=== PATIENT | male | born 1950 | race Caucasian/White ===

== ENCOUNTER 2018-08-14 13:37 | Emergency (ER) | payer MEDICARE, SELFPAY ==
[2018-08-14 13:41] VITALS: PULSE 61; RESP 20; TEMP 37; O2SAT 97
--- NOTE | 2018-08-14 14:38 | DI.RAD.S_ITS ---
PROCEDURE: XR TIBIA FUBULA RT 2V INDICATIONS: pain s/p impact with crate TECHNIQUE: 2 views of the tibia and fibula were acquired. COMPARISON: None. FINDINGS: Bones: Postoperative changes of the knee are present related to a total knee arthroplasty, which is not adequately evaluated on this exam. No displaced fractures or dislocations are evident involving the right tibia or fibula. Subtle lucencies along the cortex of the mid left tibia could potentially be postoperative or related to nutrient foramina. This area is not well characterized. Soft tissues: No suspicious soft tissue calcifications or masses. IMPRESSION: 1. No acute fracture of the right tibia or fibula. 2. Punctate lucencies along the mid tibial shaft may be postoperative. Please consider CT for further evaluation. Dictated by: Will Tineo M.D. on 08/14/2018 at 14:17 Approved by: Will Tineo M.D. on 08/14/2018 at 14:23
[2018-08-14 16:01] VITALS: BP 147/69; PULSE 52; RESP 22; O2SAT 97
--- NOTE | 2018-08-14 16:21 | ED.LOWEXIN ---
HPI - Extremity Injury (Lower) <KISHOR Ramirez - Last Filed: 08/14/18 16:28> General Chief Complaint: Extremity Injury, Lower Stated Complaint: lwr right leg wound,fall into engine room of boat Time Seen by Provider: 08/14/18 14:16 Source: patient Mode of arrival: ambulatory Limitations: no limitations History of Present Illness HPI Narrative: The patient is a 68-year-old male former smoker with history of diabetes with a wound to his right leg. He states he tripped and slammed his right rolon into a crate, which created lots of bleeding and bruising. He states bleeding was shooting across the room. He states his tetanus is within the past year. He has not take anything for the pain. He has not washed out his laceration. he is able to ambulate into the emergency department today and denies any other injury. He states he only injured his leg, and did not fall. Related Data Allergies Allergy/AdvReac Type Severity Reaction Status Date / Time No Known Drug Allergies Allergy Verified 08/14/18 13:41 Review of Systems <KISHOR Ramirez - Last Filed: 08/14/18 16:28> Review of Systems GENERAL: Denies chills, fatigue, malaise, fever, sweats. HEENT: Denies sinus pain, ear pain, sore throat, difficulty swallowing, dizziness. RESPIRATORY: Denies dyspnea, cough, wheezing, hemoptysis, sputum. CARDIOVASCULAR: Denies chest pain, palpitations, orthopnea, edema, GASTROINTESTINAL: Denies nausea, vomiting, abdominal pain, diarrhea, constipation, melena. : Denies dysuria, frequency, incontinence, hematuria, urinary retention. MUSCULOSKELETAL: See HPI SKIN: See HPI NEUROLOGIC: Denies weakness, headache, numbness, change in speech, confusion, seizures, incoordination. PSYCHIATRIC: No concerning psychosocial issues. 12 point review of systems is negative except for those stated above PFSH <KISHOR Ramirez - Last Filed: 08/14/18 16:28> Medical History (Updated 08/14/18 @ 16:23 by KISHOR Ramirez) Diabetes (Acute) Social History Smoking Status: Former smoker Social History Smoking Status: Former smoker Exam <KISHOR Ramirez - Last Filed: 08/14/18 16:28> Narrative Exam Narrative: GENERAL: This is a well-nourished, well-developed patient, no acute distress lying on stretcher HEAD: Atraumatic. Normocephalic. No temporal or scalp tenderness. EYES: Pupils equal round and reactive. Extraocular motions intact. No scleral icterus. No injection or drainage. NECK: Trachea midline. No JVD or lymphadenopathy. Supple, nontender, no meningeal signs. CARDIOVASCULAR: Regular rate and rhythm RESPIRATORY: No cough. No increased respiratory effort. EXTREMITIES: No pain palpation to tibia. Positive pedal pulses. Full range of motion noted right ankle. BACK: Nontender without deformity or crepitance. No flank tenderness. NEURO: AOx3. SKIN: 0.5 cm laceration through dermis center of right rolon. No spreading erythema or drainage noted. No active bleeding on exam. No obvious muscle or tendon involvement. No obvious foreign body. Initial Vital Signs Initial Vital Signs: Vital Signs Temperature 98.6 F 08/14/18 13:41 Pulse Rate 61 08/14/18 13:41 Respiratory Rate 20 08/14/18 13:41 Pulse Oximetry 97 08/14/18 13:41 <Isabelle Wright DO - Last Filed: 08/15/18 14:36> Initial Vital Signs Initial Vital Signs: Vital Signs Temperature 98.6 F 08/14/18 13:41 Pulse Rate 61 08/14/18 13:41 Respiratory Rate 20 08/14/18 13:41 Pulse Oximetry 97 08/14/18 13:41 Procedures <KISHOR Ramirez - Last Filed: 08/14/18 16:28> Laceration Repair Laceration 1: Site: lower extremity Side (If applicable): right Size (cm): 0.5 Description: flap Depth: simple, single layer Pre-repair: wound explored and irrigated extensively Skin layer closed with: steri-strips (1) Course <KISHOR Ramirez - Last Filed: 08/14/18 16:28> Orders Ordered: ED Orders 08/14/18 14:38 XR tibia fibula RT 2V Stat Vital Signs - 8 hr 08/14/18 13:41 08/14/18 16:01 Temperature 98.6 F Pulse Rate 61 52 L Respiratory Rate 20 22 Blood Pressure 147/69 H Pulse Oximetry 97 97 <Isabelle Wright DO - Last Filed: 08/15/18 14:36> Orders Ordered: ED Orders 08/14/18 14:38 XR tibia fibula RT 2V Stat Vital Signs - 8 hr 08/14/18 13:41 08/14/18 16:01 Temperature 98.6 F Pulse Rate 61 52 L Respiratory Rate 20 22 Blood Pressure 147/69 H Pulse Oximetry 97 97 MDM - Extremity Injury (Lower) <KISHOR Ramirez - Last Filed: 08/14/18 16:28> Imaging Data Right tib-fib: Radiologist's impression: [address] [address] XRay Report Signed Patient: Noe Urbina EMR#: [id number] : 9Acct:[id number] Age/Sex: 68 / MDate of Service: 08/14/18 Loc: ED Accession Number: [id number] Procedure: XR tibia fibula RT 2V Ordering Provider: Selina Roper PROCEDURE: XR TIBIA FUBULA RT 2V INDICATIONS: pain s/p impact with crate TECHNIQUE: 2 views of the tibia and fibula were acquired. COMPARISON: None. FINDINGS: Bones: Postoperative changes of the knee are present related to a total knee arthroplasty, which is not adequately evaluated on this exam. No displaced fractures or dislocations are evident involving the right tibia or fibula. Subtle lucencies along the cortex of the mid left tibia could potentially be postoperative or related to nutrient foramina. This area is not well characterized. Soft tissues: No suspicious soft tissue calcifications or masses. IMPRESSION: 1. No acute fracture of the right tibia or fibula. 2. Punctate lucencies along the mid tibial shaft may be postoperative. Please consider CT for further evaluation. Dictated by: Will Tineo M.D. on 08/14/2018 at 14:17 Approved by: Will Tineo M.D. on 08/14/2018 at 14:23 [facility] Narrative Medical decision making narrative: The patient a 68-year-old male who presents with an injury to his right lower leg. He does have a laceration on exam, as well as a negative x-ray. His lack was closed with a Steri-Strip per his request. Discussed at length return precautions of redness, discharge etc. Patient states understanding. Discussed return precautions to emergency department to include acute concerns. Patient has no questions or concerns upon discharge. Ambulates steadily out the department. Discharge Plan Departure Patient Disposition: Home Clinical Impression: Laceration Discharge Date/Time: 08/14/18 16:01 Interventions: ED Discharge Assessment Last Done: 08/14/18 16:01 Instructions: DI for Laceration Repair Steri-Strips, DI for Minor Laceration Activity Restrictions/Additional Instructions: Please monitor your wound for signs and symptoms of infection such as redness pus discharge etc. Please follow up with primary care provider pending these occur. Please come back to the emergency department for any acute concerns such as chest pain shortness of breath inability keep down fluids etc <Isabelle Wright DO - Last Filed: 08/15/18 14:36> Cosign ED Attending Boni Attestation: I was immediately available in the department for consultation. Documentation has been reviewed. I agree with assessment and plan.
--- NOTE | 2018-08-14 16:28 | ED_ITS ---
HPI - Extremity Injury (Lower) <KISHOR Ramirez - Last Filed: 08/14/18 16:28> General Chief Complaint: Extremity Injury, Lower Stated Complaint: lwr right leg wound,fall into engine room of boat Time Seen by Provider: 08/14/18 14:16 Source: patient Mode of arrival: ambulatory Limitations: no limitations History of Present Illness HPI Narrative: The patient is a 68-year-old male former smoker with history of diabetes with a wound to his right leg. He states he tripped and slammed his right rolon into a crate, which created lots of bleeding and bruising. He states bleeding was shooting across the room. He states his tetanus is within the past year. He has not take anything for the pain. He has not washed out his laceration. he is able to ambulate into the emergency department today and denies any other injury. He states he only injured his leg, and did not fall. Related Data Allergies Allergy/AdvReac Type Severity Reaction Status Date / Time No Known Drug Allergies Allergy Verified 08/14/18 13:41 Review of Systems <KISHOR Ramirez - Last Filed: 08/14/18 16:28> Review of Systems GENERAL: Denies chills, fatigue, malaise, fever, sweats. HEENT: Denies sinus pain, ear pain, sore throat, difficulty swallowing, dizziness. RESPIRATORY: Denies dyspnea, cough, wheezing, hemoptysis, sputum. CARDIOVASCULAR: Denies chest pain, palpitations, orthopnea, edema, GASTROINTESTINAL: Denies nausea, vomiting, abdominal pain, diarrhea, constipation, melena. : Denies dysuria, frequency, incontinence, hematuria, urinary retention. MUSCULOSKELETAL: See HPI SKIN: See HPI NEUROLOGIC: Denies weakness, headache, numbness, change in speech, confusion, seizures, incoordination. PSYCHIATRIC: No concerning psychosocial issues. 12 point review of systems is negative except for those stated above PFSH <KISHOR Ramirez - Last Filed: 08/14/18 16:28> Medical History (Updated 08/14/18 @ 16:23 by KISHOR Ramirez) Diabetes (Acute) Social History Smoking Status: Former smoker Social History Smoking Status: Former smoker Exam <KISHOR Ramirez - Last Filed: 08/14/18 16:28> Narrative Exam Narrative: GENERAL: This is a well-nourished, well-developed patient, no acute distress lying on stretcher HEAD: Atraumatic. Normocephalic. No temporal or scalp tenderness. EYES: Pupils equal round and reactive. Extraocular motions intact. No scleral icterus. No injection or drainage. NECK: Trachea midline. No JVD or lymphadenopathy. Supple, nontender, no meningeal signs. CARDIOVASCULAR: Regular rate and rhythm RESPIRATORY: No cough. No increased respiratory effort. EXTREMITIES: No pain palpation to tibia. Positive pedal pulses. Full range of motion noted right ankle. BACK: Nontender without deformity or crepitance. No flank tenderness. NEURO: AOx3. SKIN: 0.5 cm laceration through dermis center of right rolon. No spreading erythema or drainage noted. No active bleeding on exam. No obvious muscle or tendon involvement. No obvious foreign body. Initial Vital Signs Initial Vital Signs: Vital Signs Temperature 98.6 F 08/14/18 13:41 Pulse Rate 61 08/14/18 13:41 Respiratory Rate 20 08/14/18 13:41 Pulse Oximetry 97 08/14/18 13:41 <Isabelle Wright DO - Last Filed: 08/15/18 14:36> Initial Vital Signs Initial Vital Signs: Vital Signs Temperature 98.6 F 08/14/18 13:41 Pulse Rate 61 08/14/18 13:41 Respiratory Rate 20 08/14/18 13:41 Pulse Oximetry 97 08/14/18 13:41 Procedures <KISHOR Ramirez - Last Filed: 08/14/18 16:28> Laceration Repair Laceration 1: Site: lower extremity Side (If applicable): right Size (cm): 0.5 Description: flap Depth: simple, single layer Pre-repair: wound explored and irrigated extensively Skin layer closed with: steri-strips (1) Course <KISHOR Ramirez - Last Filed: 08/14/18 16:28> Orders Ordered: ED Orders 08/14/18 14:38 XR tibia fibula RT 2V Stat Vital Signs - 8 hr 08/14/18 13:41 08/14/18 16:01 Temperature 98.6 F Pulse Rate 61 52 L Respiratory Rate 20 22 Blood Pressure 147/69 H Pulse Oximetry 97 97 <Isabelle Wright DO - Last Filed: 08/15/18 14:36> Orders Ordered: ED Orders 08/14/18 14:38 XR tibia fibula RT 2V Stat Vital Signs - 8 hr 08/14/18 13:41 08/14/18 16:01 Temperature 98.6 F Pulse Rate 61 52 L Respiratory Rate 20 22 Blood Pressure 147/69 H Pulse Oximetry 97 97 MDM - Extremity Injury (Lower) <KISHOR Ramirez - Last Filed: 08/14/18 16:28> Imaging Data Right tib-fib: Radiologist's impression: [address] [address] XRay Report Signed Patient: Noe Urbina EMR#: [id number] : 9Acct:[id number] Age/Sex: 68 / MDate of Service: 08/14/18 Loc: ED Accession Number: [id number] Procedure: XR tibia fibula RT 2V Ordering Provider: Selina Roper PROCEDURE: XR TIBIA FUBULA RT 2V INDICATIONS: pain s/p impact with crate TECHNIQUE: 2 views of the tibia and fibula were acquired. COMPARISON: None. FINDINGS: Bones: Postoperative changes of the knee are present related to a total knee arthroplasty, which is not adequately evaluated on this exam. No displaced fractures or dislocations are evident involving the right tibia or fibula. Subtle lucencies along the cortex of the mid left tibia could potentially be postoperative or related to nutrient foramina. This area is not well characterized. Soft tissues: No suspicious soft tissue calcifications or masses. IMPRESSION: 1. No acute fracture of the right tibia or fibula. 2. Punctate lucencies along the mid tibial shaft may be postoperative. Please consider CT for further evaluation. Dictated by: Will Tineo M.D. on 08/14/2018 at 14:17 Approved by: Will Tineo M.D. on 08/14/2018 at 14:23 [facility] Narrative Medical decision making narrative: The patient a 68-year-old male who presents with an injury to his right lower leg. He does have a laceration on exam, as well as a negative x-ray. His lack was closed with a Steri-Strip per his request. Discussed at length return precautions of redness, discharge etc. Patient states understanding. Discussed return precautions to emergency departm ent to include acute concerns. Patient has no questions or concerns upon discharge. Ambulates steadily out the department. Discharge Plan Departure Patient Disposition: Home Clinical Impression: Laceration Discharge Date/Time: 08/14/18 16:01 Interventions: ED Discharge Assessment Last Done: 08/14/18 16:01 Instructions: DI for Laceration Repair Steri-Strips, DI for Minor Laceration Activity Restrictions/Additional Instructions: Please monitor your wound for signs and symptoms of infection such as redness pus discharge etc. Please follow up with primary care provider pending these occur. Please come back to the emergency department for any acute concerns such as chest pain shortness of breath inability keep down fluids etc <Isabelle Wright DO - Last Filed: 08/15/18 14:36> Cosign ED Attending Boni Attestation: I was immediately available in the department for consultation. Documentation has been reviewed. I agree with assessment and plan.
== END 2018-08-14 16:01 | disposition home or self-care (01) ==
PROVIDERS: Emergency Provider Nurse Practitioner Family
DX: S81.811A Laceration without foreign body, right lower leg, initial encounter (principal); W19.XXXA Unspecified fall, initial encounter
CPT/HCPCS: 73590; 99282; 99283